=== PATIENT | female | born 2000 | race Caucasian/White ===

== ENCOUNTER 2024-03-03 23:18 | Emergency (ER) | payer BC, SELFPAY ==
[2024-03-03 23:21] VITALS: BP 129/87; PULSE 92; RESP 17; TEMP 36.9; O2SAT 99; BMI 28.3
--- NOTE | 2024-03-03 23:21 | ED_ITS ---
Discharge Plan Referrals Follow up/Referrals: Provider,MD Janette [Primary Care Provider] - See instructions Marshall Corrales MD [Staff Physician] - See instructions Activity Restrictions/Add. Instructions Additional Instructions/Restrictions: Please follow-up with your primary care provider. Please return to the emergency department if you develop any new or worsening symptoms or become concerned for your health. Please perform twice daily dressing changes. Please keep the wound clean dry and covered. Okay to let warm clean water run over it. Please call Dr. Matos's office to schedule follow-up for reassessment. Clinical Impressions Clinical Impression: Cellulitis Abscess of skin or subcutaneous tissue Qualifiers: Site of cutaneous abscess: extremity Site of cutaneous abscess of extremity: u pper extremity Laterality: left Qualified Code(s): L02.414 - Cutaneous abscess of left upper limb Instructions Patient Instructions: DI for Skin Abscess Print Language Print Language: Bur[place] Discharge ED Provider: Alfred Mitchell General Adult HPI General Chief complaint: Skin/Abscess/Foreign Body Stated complaint: bug bite L arm, red, swollen Time Seen by Provider: 03/03/24 23:21 History of Present Illness HPI narrative: 23-year-old female with history of prior drug use, 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 She reports been present for the last several days and has been worsening. She denies fever at home. She thinks it could have been a spider bite . She reports penicillin allergy, denies past medical history, denies generalized symptoms such as fever chills nausea vomiting etc. Related Data Allergies Allergy/AdvReac Type Severity Reaction Status Date / Time No Known Allergies Allergy Verified 03/03/24 23:33 [facility] Disclaimer: The information contained in this section may have been updated after the patient was seen, as this information can be updated by other users. Social History Smoking Status: Current every day smoker alcohol intake: never current occupational status: other ROS Obtained: Yes All systems reviewed & no additional complaints except as documented Physical Exam General General appearance: alert and in no apparent distress Head Head exam: atraumatic and normocephalic Eye Eye exam: Present normal appearance, PERRL and EOMI ENT ENT exam: Present normal oropharynx and normal external ear exam Neck Neck exam: Present normal inspection and full ROM Chest Chest inspection: Present normal inspection and symmetric chest wall rise; Absent tenderness Respiratory Respiratory exam: Present normal lung sounds bilaterally; Absent respiratory distress Cardiovascular Cardiovascular exam: Present regular rate and normal rhythm Abdominal Exam Abdominal exam: Present soft; Absent distention, tenderness or guarding Extremities Exam Extremities exam: Present other (Large fluctuant fluid collection with large area of surrounding erythema and induration consistent with abscess and surrounding cellulitis. This is present on the left volar medial upper forearm. Neurovascularly intact) Back Exam Back exam: Present normal inspection; Absent tenderness Neurological Exam Neurological exam: Present alert and oriented X3; Absent motor sensory deficit Psychiatric Psychiatric exam: Present normal affect and normal mood Skin Skin exam: Present warm, dry and normal color Lymphatic Lymphatic Findings: no adenopathy Medical Decision Making Medical Records Medical records reviewed: Yes I reviewed the patient's medical records. Screening: Per USPSTF and CDC recommendations, given the prevalence of disease in our region, it is our hospital?s policy to screen for HIV and viral Hepatitis for all patients aged 18 and over and those with ongoing risk factors. Virgilio Inquiry Pt receiving controlled substance: No Virgilio was queried for this patient: No Vital Signs: 03/03/24 23:21 Temperature 98.4 F Temperature Source Oral Pulse Rate [Left] 92 H Respiratory Rate 17 Blood Pressure [Right Arm] 129/87 Blood Pressure Mean [Right Arm] 101 Blood Pressure Source [Right Arm] Automatic Cuff Blood Pressure Position [Right Arm] Supine 02 Sat by Pulse Oximetry 99 Oxygen Delivery Method Room Air Lab Data Lab results reviewed: Yes I reviewed the patient's lab results. Lab Results 03/03/24 23:57: WBC 9.1, RBC 4.71, Hgb 14.0, Hct 42.1, MCV 89.3, MCH 29.7, MCHC 33.3, RDW 13.4, Plt Count 230, MPV 7.9, Neut % (Auto) 54.5, Lymph % (Auto) 37.4, [place] % (Auto) 6.0, Eos % (Auto) 1.3, Baso % (Auto) 0.7, Neut # (Auto) 5.0, Lymph # (Auto) 3.4, [place] # (Auto) 0.6, Eos # (Auto) 0.1, Baso # (Auto) 0.1, Sodium 136, Potassium 3.9, Chloride 98, Carbon Dioxide 31 H, Anion Gap 10.9, BUN 13, Creatinine 0.70, Estimated Creat Clear 150, Estimated GFR 102, Est GFR ( Amer) 123, Glucose 88, Calcium 9.9, Total Bilirubin 0.7, AST 49 H, ALT 53, Alkaline Phosphatase 115, Total Protein 7.4, Albumin 4.4, Globulin 3.0, Albumin/Globulin Ratio 1.5, Serum HCG, Qual Negative, HIV 1&2 Antibody Rapid Nonreactive 03/03/24 23:57 03/03/24 23:57 Orders (Tests/Meds): ED MEDICATIONS Discontinued Medications Generic Name Dose Route Start Last Admin Trade Name Freq PRN Reason Stop Dose Admin Dalbavancin 1,500 mg/ Dextrose 250 mls @ 500 mls/hr 03/04/24 00:21 03/04/24 00:21 IV 03/04/24 00:22 500 mls/hr ONCE ONE Administration Lidocaine/Epinephrine 10 ml 03/03/24 23:33 03/03/24 23:35 Lidocaine 1% W/Epi 1:100,000 20ml Vial SQ 03/03/24 23:34 5 ml ONCE ONE Administration ORDERS Category Date Time Status POCUS Point of Care (ER Only) Stat Exams 03/03/24 23:46 Completed CBC w/Auto Diff [Complete Blood Count Auto Diff] Stat Lab 03/03/24 23:57 Completed CMP [Comprehensive Metabolic Panel] Stat Lab 03/03/24 23:57 Completed HIV (1&2) Antibody Rapid Stat Lab 03/04/24 00:21 Received Hep C Ab with Reflex to RNA Stat Lab 03/04/24 00:21 Received Serum [HCG Qualitative, Serum] Stat Lab 03/03/24 23:57 Completed Blood Culture Stat Micro 03/03/24 23:57 Received Medical Decision Narrative: 23-year-old female with history of prior drug use, though currently reports she has been clean and on methadone presents with left forearm abscess and surrounding cellulitis. History was obtained via interactive discussion with patient. On arrival, patient is [afebrile, hemodynamically stable, satting appropriately, alert, oriented x4, GCS 15], moving all extremities spontaneously. Full physical exam performed and significant for fluctuant mass was surrounding cellulitis in the forearm Differential includes but is not limited to abscess, cellulitis, necrotizing infection. Bedside ultrasound is consistent with large abscess with surrounding cellulitis Workup initiated including blood cultures, CBC CMP test. On re-evaluation, patient [remains afebrile, HD stable.] Laboratory workup independently interpreted by me and significant for no significant leukocytosis, negative , minimally elevated AST. The abscess was drained at bedside by me with large volume of malodorous purulent discharge, copiously irrigated and a vessel loop was placed. Admission for IV antibiotic therapy was considered given the size and extent of the abscess and surrounding cellulitis, but patient was deemed to be an appropriate candidate for Dalvance. She was given Dalvance and discharged with instructions to follow-up with our general surgery team for wound check because she does not have a PCP. Procedures Risk/Benefits of Procedure(s) Were Explained: Yes Abscess I/D Site: upper extremity (Left proximal volar medial forearm) Local Anesthetic: lidocaine 1% and with epi Amount of anesthesia used (mL): 8 Technique: incised with #11 blade Amount of fluid expressed (mL): 10 (Large volume) Irrigation: Yes Packing used?: yarely drain Limited Ultrasound Indication:: Limited soft tissue ultrasound Indication: Soft tissue swelling, redness Identified structures: Location: Left proximal volar medial forearm Findings: Large subcutaneous abscess with surrounding cobblestoning consistent with cellulitis Impression: Large abscess with surrounding cellulitis Images were saved to permanent archive The study was technically adequate Soft Tissue CPT Codes: CPT Upper extremity: 45508-81 This study was performed by me, and I personally interpreted all images/videos. Views:: Procedure: USIV placement Indication: abscess Procedure: A 18-gauge long IV was inserted under direct ultrasound guidance by me at bedside in the right bicep vein. Images were saved. No complications. Critical Care Critical Care Time Critical Care Time: No
[2024-03-03] MEDS: LIDOCAINE 1% W/EPI 1:100,000 20ML VIAL 10 ML SQ (23:35)
[2024-03-04 00:20] LABS: Albumin Level 4.4 g/dl (3.5-5.0); Basophils # 0.1 K/mm3 (0-0.2); Basophils % 0.7 % (0.1-2.0); Chloride 98 mmol/L (98-107); Eosinophils # 0.1 K/mm3 (0.0-0.4); Eosinophils % 1.3 % (0.1-12.0); Hematocrit 42.1 % (37.0-47.0); Lymphocytes # 3.4 K/mm3 (0.7-4.5); Lymphocytes % 37.4 % (10-50); Mean Corpuscular HGB Conc 33.3 g/dL (31.8-35.4); Mean Corpuscular Hemoglobin 29.7 pg (27.0-31.2); Mean Corpuscular Volume 89.3 fl (81-99); Mean Platelet Volume 7.9 fl (7.4-10.4); Monocytes # 0.6 K/mm3 (0.1-1.0); Neutrophils % 54.5 % (37.0-80.0); Platelet Count 230 K/mm3 (142-424); Red Blood Count 4.71 M/mm3 (4.20-5.40); Red Cell Distribution Width 13.4 % (11.5-17.5); Sodium 136 mmol/L (136-145); White Blood Count 9.1 K/mm3 (4.8-10.8)
[2024-03-04 00:21] LABS: Potassium 3.9 mmoL/L (3.5-5.1)
[2024-03-04] MEDS: DALBAVANCIN HCL 1,500 MG in DEXTROSE 5 % IN WATER 250 ML 500 MG IV (00:21)
[2024-03-04 00:22] LABS: HCG Qualitative, Serum Negative (Negative)
[2024-03-04 00:23] LABS: Alanine Aminotransferase 53 U/L (12-78); Albumin/Globulin Ratio 1.5 (1.1-1.8); Alkaline Phosphatase 115 U/L (38-126); Anion Gap 10.9 mEq/L (5-15); Aspartate Amino Transferase 49 U/L (14-36); Bilirubin,Total 0.7 mg/dl (0.2-1.3); Blood Urea Nitrogen 13 mg/dl (7-17); Carbon Dioxide 31 mmol/L (22.0-30.0); Creatinine Clearance Estimated 150 mL/min (50-200); Estimated Glomerular Filt Rate 102 ml/min (>60); GFR (African American) 123 ML/MIN (>60); Total Protein,Serum 7.4 g/dl (6.3-8.2)
[2024-03-04 00:24] LABS: Calcium 9.9 mg/dl (8.4-10.2); Glucose 88 mg/dl (74-100)
[2024-03-04 01:08] LABS: HIV (1&2) Antibody Rapid NONREACTIVE (NONREACTIVE)
[2024-03-04 01:12] VITALS: BP 121/80; PULSE 88; RESP 18; TEMP 36.9; O2SAT 97
[2024-03-10 18:09] LABS: HCV Ab Reactive (Non Reactive)
== END 2024-03-04 01:12 | disposition home or self-care (01) ==
PROVIDERS: Emergency Provider Emergency Medicine
DX: L03.90 Cellulitis, unspecified (principal); L02.91 Cutaneous abscess, unspecified; M79.602 Pain in left arm
CPT/HCPCS: 10060; 80053; 84703; 85025; 86803; 87040; 87389; 96365; 96374; 99283; J0875; J7060